=== PATIENT | female | born 1965 | race Caucasian/White ===

== ENCOUNTER 2017-08-05 07:07 | Day surgery (SDC) | payer OTHER ==
[~2017-08-05] VITALS: Ht 175.3 cm; Wt 69.8 kg
[~2017-08-05 07:07] MED LIST: DAILY MULTIPLE1 EACH PO; TRAMADOL HCL50 MG PO
--- NOTE | 2017-08-05 08:33 | NUR ---
08/05/17 0833 Peg Garcia [id number]-PATIENT ARRIVED TO PACU ON 3L NC O2 SAT 100% PATIENT REACTIVE OPENS EYES TO VOICE AND FALLS BACK ASLEEP. ABDOMEN SOFT. LAYING LEFT LATERAL
--- NOTE | 2017-08-07 08:29 | OR ---
[facility] [address], [place] [address] Signed DATE OF PROCEDURE: 08/05/17 PREOPERATIVE DIAGNOSIS: Screening. POSTOPERATIVE DIAGNOSES Minimal sigmoid diverticulosis. Minimal to moderate internal hemorrhoids. PROCEDURE: Colonoscopy without biopsy. ESTIMATED BLOOD LOSS: None. INDICATIONS Aleksandra is a 52-year-old female who was asked to see me for her initial screening colonoscopy. She has no lower GI complaints. There is no family history of colon cancer or polyps. In the office, I gave her a pamphlet on colonoscopy and we reviewed the nature of the test along with the risks including, but not limited to gas bloating, crampy abdominal pain, bleeding, perforation requiring surgery, and missed diagnosis. We also discussed the need for IV conscious sedation. She had expressed understanding and wished to proceed. PROCEDURE NOTE Aleksandra was taken into our endoscopy suite and placed in the left lateral decubitus position. She was given 10 mg of Versed and 150 mcg of Fentanyl for the procedure. A digital rectal exam was performed and this was unremarkable. The adult colonoscope was introduced and advanced all the way around into the cecum under direct visualization of camera without difficulty. The prep was good. The scope was then slowly withdrawn. She had just a few diverticula in the sigmoid colon. They were minimal to moderate in size, minimal to moderate in number and scattered about. The rectum itself was unremarkable. Upon retroflexion of scope, she has minimal to moderate internal hemorrhoid columns. After this, the gas was suctioned out and the colonoscope removed. Aleksandra tolerated the procedure quite well. RECOMMENDATIONS Aleksandra can follow up my office in 10 years for repeat colonoscopy. Donnie Deleon MD Electronically Signed By: DONNIE DELEON MD 08/07/17 0829 PATIENT NAME: ALEKSANDRA RODRIGUEZ OPERATIVE REPORT DATE OF : 69 PHYSICIAN: DONNIE DELEON MD REPORT #: [id number] REPORT IS CONFIDENTIAL AND NOT TO BE RELEASED WITHOUT AUTHORIZATION [address] [address] Signed AB/Modl /[id number] cc: Dr. Devin Parish Electronically Signed By: DONNIE DELEON MD 08/07/17 0829 PATIENT NAME: ALEKSANDRA RODRIGUEZ OPERATIVE REPORT DATE OF : 69 PHYSICIAN: DONNIE DELEON MD REPORT #: [id number] REPORT IS CONFIDENTIAL AND NOT TO BE RELEASED WITHOUT AUTHORIZATION
== END 2017-08-05 09:23 | disposition home or self-care (01) ==
LOC: DS 07:07
PROVIDERS: Colon & Rectal Surgery
PROC: 0DJD8ZZ Inspection of Lower Intestinal Tract, Via Natural or Artificial Opening Endoscopic (ICD-10-PCS; principal; 2017-08-05 08:15)
DX: Z12.11 Encounter for screening for malignant neoplasm of colon (principal); K57.30 Diverticulosis of large intestine without perforation or abscess without bleeding; K64.8 Other hemorrhoids; G47.00 Insomnia, unspecified; J30.9 Allergic rhinitis, unspecified; K21.9 Gastro-esophageal reflux disease without esophagitis; F17.210 Nicotine dependence, cigarettes, uncomplicated; Z98.890 Other specified postprocedural states
CPT/HCPCS: 99152; 99153; J2250; J3010; J7120